=== PATIENT | male | born 1965 | race Caucasian/White ===

== ENCOUNTER → 2018-07-26 | Outpatient (CLI) | payer BC ==
--- NOTE | 2018-07-26 11:54 | ECHOS ---
STRESS ECHOCARDIOGRAM DATE OF SERVICE: 07/26/2018 INDICATIONS: Family history of coronary artery disease. MEDICATIONS: Lisinopril. BASELINE HEART RATE: 79 BASELINE BLOOD PRESSURE: 145/97 MAXIMUM HEART RATE: 165 MAXIMUM BLOOD PRESSURE: 162/80 85% MPHR: 140 100% MPHR: 165 METS: 11 MAXIMUM STAGE REACHED: III TOTAL EXERCISE TIME: 10 minutes CLINICAL INFORMATION: Baseline EKG shows sinus rhythm, normal axis, normal intervals. Patient exercised on Alex protocol for a total of 10 minutes, achieving 11 METs, 100% of predicted maximal heart rate without chest pain. At peak exercise, there was a [address]-segment depression noted in the inferolateral leads. Baseline echo shows normal left ventricular size, wall motion and systolic function. Postexercise, there is normal hyperdynamic response of all segments of myocardium noted. CONCLUSIONS: 1. Good exercise tolerance. 2. Abnormal stress test by EKG criteria. 3. Negative stress echo. DINESHL / IJN: [id number] /
--- NOTE | 2018-07-26 13:03 | US ---
EXAMINATION TYPE: US carotid duplex BILAT DATE OF EXAM: 07/26/2018 COMPARISON: NONE CLINICAL HISTORY: I10 essential hypertension. HTN EXAM MEASUREMENTS: RIGHT: Peak Systolic Velocity (PSV) cm/sec ----- Right CCA: 103.1 ----- Right ICA: 109.6 ----- Right ECA: 95.3 ICA/CCA ratio: 1.1 RIGHT: End Diastole cm/sec ----- Right CCA: 29.3 ----- Right ICA: 26.7 ----- Right ECA: 15.0 LEFT: Peak Systolic Velocity (PSV) cm/sec ----- Left CCA: 105.6 ----- Left ICA: 105.7 ----- Left ECA: 104.3 ICA/CCA ratio: 1.0 LEFT: End Diastole cm/sec ----- Left CCA: 31.1 ----- Left ICA: 26.7 ----- Left ECA: 14.7 VERTEBRALS (direction of flow): Right Vertebral: Antegrade Left Vertebral: Antegrade Rhythm: Normal Grayscale, color Doppler, spectral Doppler imaging performed of the carotid arteries. Mild plaque jez ateral bifurcations. No evidence of significant stenosis Waveform analysis does not show significant stenosis of the proximal internal carotid arteries by Dop pler criteria IMPRESSION: No hemodynamic significant stenosis of the proximal internal carotid arteries bilaterall y by Doppler criteria, an indirect measurement of carotid stenosis
== END | disposition home or self-care (01) ==
LOC: RADUSMAIN 07:48
PROVIDERS: ATTEND Family Medicine
DX: R94.39 Abnormal result of other cardiovascular function study (principal); I10 Essential (primary) hypertension
CPT/HCPCS: 93351; 93880

== ENCOUNTER 2021-02-07 11:51 | Day surgery (SDC) | payer BC ==
[2021-02-06 08:36] VITALS: BMI 34.0
[~2021-02-07 11:51] MED LIST: DEXAMETHASONE SOD PHOSPHATE 4 MG/ML 1 ML VIAL IV ONE; LACTATED RINGERS 1,000 ML IV SCH; MIDAZOLAM 2 MG/2 ML VIAL IV PRN; SCOPOLAMINE 1.5MG/72HR PATCH TRANSDERM ONE
[2021-02-07 12:43] VITALS: RESP 16
[2021-02-07] MEDS ORDERED: LIDOCAINE 1% (10MG/ML) FOR IV START INTRADERMA ONE (12:54)
[2021-02-07] MEDS: ONDANSETRON 4 MG/2 ML VIAL IVP ONE ×2 (13:17→17:22)
[2021-02-07] MEDS ORDERED: MIDAZOLAM 2 MG/2 ML VIAL IV ONE (13:30)
[2021-02-07] MEDS ORDERED: fentaNYL (PF) 50 MCG/ML 2 ML AMP IV ONE (13:30)
--- NOTE | 2021-02-07 14:01 | P.ANPRN ---
Procedure Note - Anesthesia - Nerve Block Performed Left Popliteal Single Time Out Performed: Yes (1329) Date of Procedure: 02/07/21 Procedure Start Time: 13:31 Procedure Stop Time: 13:36 Location of Patient: PreOp Indication: Acute Post-Operative Pain, Requested by Surgeon Specifically requested for management of pain by DrNeymar: Nato Scott Sedation Type: Sedate with meaningful contact maintained Preparation: Sterile Prep Position: Right Lateral Catheter: None Needle Types: Pajunk Needle Gauge: 21 Ultrasound used to visualize needle placement: Yes Ultrasound used to observe medication spread: Yes Injectate: 0.5% Ropivacaine (see comment for volume) (20cc) Blood Aspirated: No Pain Paresthesia on Injection Noted: No Resistance on Injection: Normal Image Stored and Saved: Yes Events: Uneventful and Well Tolerated Left Adductor Canal Single Time Out Performed: Yes (1329) Date of Procedure: 02/07/21 Procedure Start Time: 13:37 Procedure Stop Time: 13:41 Location of Patient: PreOp Indication: Acute Post-Operative Pain, Requested by Surgeon Specifically requested for management of pain by DrNeymar: Nato Scott Sedation Type: Sedate with meaningful contact maintained Preparation: Sterile Prep Position: Supine Catheter: None Needle Types: Pajunk Needle Gauge: 21 Ultrasound used to visualize needle placement: Yes Ultrasound used to observe medication spread: Yes Injectate: 0.5% Ropivacaine (see comment for volume) (20cc) Blood Aspirated: No Pain Paresthesia on Injection Noted: No Resistance on Injection: Normal Image Stored and Saved: Yes Events: Uneventful and Well Tolerated
[2021-02-07] MEDS ORDERED: KETOROLAC 15 MG/ML 1 ML VIAL ONE (14:57)
[2021-02-07] MEDS ORDERED: PROPOFOL 10 MG/ML 20 ML VIAL IV ONE (14:57)
[2021-02-07] MEDS ORDERED: fentaNYL (PF) 50 MCG/ML 2 ML AMP ONE (14:57)
[2021-02-07] MEDS ORDERED: LIDOCAINE 1% INJ 10MG/ML (20 ML MDV) ONE (14:57)
[2021-02-07] MEDS ORDERED: NEOSTIGMINE 1 MG/ML 10 ML VIAL ONE (14:57)
[2021-02-07] MEDS ORDERED: SUCCINYLCHOLINE CHLORIDE 100 MG/5 ML SYR IV ONE (14:57)
[2021-02-07] MEDS ORDERED: ROCURONIUM 10 MG/ML (5 ML VIAL) IV ONE (14:57)
[2021-02-07] MEDS ORDERED: GLYCOPYRROLATE 0.2 MG/ML 2 ML VIAL ONE (14:57)
[2021-02-07] MEDS ORDERED: MIDAZOLAM 2 MG/2 ML VIAL ONE (14:57)
[2021-02-07] MEDS ORDERED: ROPIVACAINE 5 MG/ML 30 ML VIAL ONE (14:57)
[2021-02-07] MEDS ORDERED: ceFAZolin 1,000 MG in SODIUM CHLORIDE 0.9% 1,000 ML IRRIGATION ONE (15:28)
--- NOTE | 2021-02-07 16:55 | P.OP ---
Date of Procedure: 02/07/21 Preoperative Diagnosis: Left Achilles tendon rupture Postoperative Diagnosis: Same Procedure(s) Performed: Secondary repair left Achilles tendon rupture with allograft Implants: (2) 4.75 mm swivel lock anchors One Arthrex [id number] tissue allograft Anesthesia: SHEELA Surgeon: Nato Scott Estimated Blood Loss (ml): 5 Pathology: none sent Condition: stable Disposition: PACU Indications for Procedure: Neglected left Achilles tendon rupture 6 weeks post injury Description of Procedure: Prior to the patient being brought to the operating room anesthesia administered a nerve block on the left lower extremity under ultrasonic guidance mild sedation. The patient was then brought into the operating room where general anesthesia was administered. Timeout was taken to confirm correct patient identifiers, correct site of surgery, and correct procedure. Then the patient was rolled onto the operating room table in the prone position. Appropriate padding was placed beneath any bony prominences. Once anesthesia had position the head to their satisfaction, the tourniquet was placed on the left thigh and then the left leg was prepped and draped usual manner. The leg was exsanguinated, the knee flexed, and the tourniquet inflated to 250 mmHg. Inches directed over the posterior aspect of the ankle where there was a palpable defect in the Achilles tendon and the watershed area. An L-shaped incision was made with the transverse portion just over the proximal stump and then extending proximally along the medial side of the tendon. The incision was deepened under the subcutaneous tissue careful to identify voiding retract any neurovascular structures and cauterize any bleeding vessels. There is very little mobility to the proximal end of the tendon due to scarring. Blunt instrumentation was used to free the adhesions surrounding the proximal aspect of the tendon. A large grasper was used on the proximal end of the tendon and tension placed on it, however the large gap between the tendon ends only resolved by proximally 50%. At that point it was decided to do a gastroc recession therefore a linear incision was made along the midline just distal to the calf musculature. Was deepened down to the subcutaneous tissue careful to identify voiding retract any neurovascular structures and cauterize any bleeding vessels. Blunt dissection was continued down to level of the aponeurosis of the gastroc muscle belly. Approximate 3-4 cm distal to the muscle belly, a transverse incision was made through the aponeurosis from medial to lateral taking care to avoid as much trauma to underlying muscles possible. Then the proximal end of the tendon rupture was grasped again and more tension was placed on it and a majority of the gap from the injury was able to be resolved. Then the Arthrex PARS jig was inserted along the proximal stump of the Achilles tendon, while distally retracting the tendon, so that the inner arms of the jig were along the tendon and within the tendon sheath and peritenon. Once the jig was in place a large needle was placed through the #1 hole from medial to lateral to lock the jig in place and so that the tendon would and retract. A needle was passed the #2 hole the suture tape suture was passed from medial to lateral through the jig. The looped suture was then placed through the 3 and 4 holes making sure that there was one loop on either side of the leg. And then the #5 suture was placed. The needle on the #1 hole was re-was removed and replaced with suture tape. After all the suture was in place the jig was slowly removed through the surgical site and then the sutures organized medially and laterally. The #2 suture was then looped around the #3 and 4 sutures twice and then the free end of the #2 was passed through the suture loop. Then the free end of the #4 #3 sutures are pulled medially and laterally corresponding to the opposite area where the loop was placed so that the #2 suture could be locked on either side of the tendon. The sutures of the medial lateral aspect were again organized. And then tension placed on either suture group distally to take any of the creep out of the suture. Small stab incisions were made to the skin on either side of the Achilles attachment on the calcaneus and bluntly dissected down to bone. 3.4 mm drill holes were made into the calcaneus through the corresponding skin incisions and then the holes were both tapped. A suture passer was then placed through the small stab incision and passing the distal stump of the tendon exiting out into the surgical field. This was done both medial and lateral. The nitinol wire in the suture passer was then used to bring the suture through the distal stump and out the small stab incision over the drill hole. This was done both on the medial lateral sides with tension being placed on both groups of suture and the ankle plantarflexed 4.75 mm anchor was inserted into the corresponding drill holes utilizing proper tensioning techniques and then the anchor advanced to proper depth. The tendon ends were in very close proximity at the time repair there was a good strong repair and that point Morse's test was negative. The wound is then irrigated thoroughly with antibiotic saline. Then an Arthrex [id number] tissue allograft was placed directly over the repair site and wrapped around the tendon. With a mild amount of tension on the edges of the graft it was sewn into place with 4-0 Monocryl. The graft was used to strengthen the repair site and decrease adhesions. The wound was then again flushed with antibiotic saline. Subcutaneous closure was done with 4-0 Monocryl and skin closure done with glenys. An Arthrex jumpstart dressing is applied over the incisions. A dry sterile dressings applied to the left leg and then the tourniquet was released and capillary refill return to all digits on the left foot. The patient was then placed in a well-padded, well molded, plaster, posterior mold/sugar tong splint. The ankle was held as close to 90 as possible while the splint dried. The patient was then transferred onto the bed, back into the supine position, at which point anesthesia was reversed. Patient left the operating room to recovery with vital signs stable.
[2021-02-07] MEDS: HYDROmorphone 0.5 MG/0.5 ML SYRINGE IVP PRN ×4 (17:10→17:25)
[2021-02-07] MEDS ORDERED: LACTATED RINGERS 1,000 ML IV ONE (17:13)
[2021-02-07 17:17] VITALS: TEMP 97.3
[2021-02-07] MEDS ORDERED: HYDROcodone/APAP 5-325MG 1 EACH TAB ONE (18:04)
[2021-02-07] MEDS ORDERED: HYDROcodone/APAP 5-325MG 1 EACH TAB PO ONE (18:08)
[2021-02-07 18:53] VITALS: BP 136/84; PULSE 80
--- NOTE | 2021-02-14 09:11 | CDI ---
Outpatient Documentation Clarification Form Date: 02/14/21 CDS/Mid Level Project Manager Name: Brigid Taveras Phone: If any questions, call Siena Chan Bunch Maker at [phone] Patient Name: Rex Estrada Admit Date: 02/07/21 Discharge Date: 02/07/21 ATTENTION: The [facility] Coding Staff appreciate your assistance in clarifying documentation. Please respond to the clarification below the line at the bottom and electronically sign. The [facility] Coding staff will review the response and follow-up if needed. Please note: Queries are made part of the Legal Health Record. If you have any questions, please contact the Bunch Maker. Dear Dr. Sy, Please provide clarification as to the location of the popliteal nerve block. Greatest specificity is required for medical necessity support. Please see the follow: A popliteal block procedure note, without a description of the anatomy is not helpful in determining the correct code to report. A popliteal fossa injection is reported with CPT code 47483 (sciatic nerve), whereas a saphenous popliteal is reported with CPT code 16529 (other peripheral nerve block). Thank you for your kind consideration. Popliteal block is done in the popliteal fossa MTDD
== END 2021-02-07 19:30 | disposition home or self-care (01) ==
LOC: OR 11:51
PROVIDERS: ATTEND Podiatrist
DX: S86.012A Strain of left Achilles tendon, initial encounter (principal); X50.1XXA Overexertion from prolonged static or awkward postures, initial encounter; Y93.79 Activity, other specified sports and athletics; I10 Essential (primary) hypertension; E78.5 Hyperlipidemia, unspecified; G47.33 Obstructive sleep apnea (adult) (pediatric); K21.9 Gastro-esophageal reflux disease without esophagitis; Z97.3 Presence of spectacles and contact lenses; Z82.49 Family history of ischemic heart disease and other diseases of the circulatory system; Z83.2 Family history of diseases of the blood and blood-forming organs and certain disorders involving the immune mechanism; Z79.899 Other long term (current) drug therapy
CPT/HCPCS: 27654; 64447; 64445; 76942; C1713 ×2; Q4125; J2250; J1100; J2710; J0690 ×2; J2405; J2001; J3010; J2795; J1885; J0330; J2704; J1170

== ENCOUNTER → 2022-06-03 | Outpatient (CLI) | payer BC ==
--- NOTE | 2022-06-03 19:06 | CT ---
EXAMINATION TYPE: CT abdomen pelvis wo con DATE OF EXAM: 06/03/2022 COMPARISON: None INDICATION: Gross hematuria DLP: 983.40 mGycm, Automated exposure control for dose reduction was used. CONTRAST: 0 mL of Isovue 300. Study performed without Oral Contrast TECHNIQUE: Axial images were obtained from above the diaphragm to the pubic rami in the axial plane a t 5 mm thick sections. Reconstructed images are reviewed on the computer in the coronal plane. FINDINGS: Limited CT sections are obtained the lung bases. The lung bases are clear. CT ABDOMEN: Liver: Normal Spleen: Normal Pancreas: Normal Adrenal glands: The adrenal glands are normal. Gallbladder: Normal Kidneys: No masses are evident. No hydronephrosis is present. No cysts are present. No renal stone s are evident. Aorta: Vascular calcification is within the aorta. Inferior vena cava: Normal. CT PELVIS: Loops of bowel within the abdomen and pelvis are normal. Study is without oral contrast limiting bowel evaluation. Appendix: Normal as visualized. Urinary bladder: Normal. Genitourinary structures: Prostate appears normal. Punctate calcifications within the prostate. Osseous structures: No suspicious lytic or sclerotic lesions. IMPRESSIONS: 1. No suspicious abnormality to account for gross hematuria. Consider additional workup as clinicall y indicated.
== END | disposition home or self-care (01) ==
LOC: RADCTMAIN 10:41
PROVIDERS: ATTEND Family Medicine
DX: R31.0 Gross hematuria (principal)
CPT/HCPCS: 74176